=== PATIENT | female | born 1970 | race Caucasian/White ===

== ENCOUNTER 2023-03-26 08:13 | Outpatient (CLI) | payer MEDICARE, SELFPAY ==
--- NOTE | ~2023-03-26 | CT_ITS ---
EXAMINATION: CT sinus wo con DATE: 03/26/2023 08:26 INDICATION: Chronic sinusitis. TECHNIQUE: Computed tomography (CT) of the paranasal sinuses was performed without intravenous contra st. Iterative reconstruction technique was employed. The dose-length product was 264.97 mGy-cm. COMPARISON: None FINDINGS: The frontal, ethmoid, sphenoid, and maxillary sinuses are clear. There is mild rightward de viation of the nasal septum. The ostiomeatal units are patent. IMPRESSION: 1. Mild rightward deviation of the nasal septum. Reviewed, dictated and finalized at location E.
== END 2023-03-26 08:14 ==
LOC: MICIMG 08:15
PROVIDERS: PCP Family Medicine; Visit Provider Otolaryngology
DX: J32.9 Chronic sinusitis, unspecified (principal); J34.2 Deviated nasal septum
CPT/HCPCS: 70486

== ENCOUNTER 2025-02-27 09:18 | Outpatient (CLI) | payer MEDICARE, SELFPAY ==
--- NOTE | ~2025-02-27 | CT_ITS ---
EXAMINATION: CT cervical spine wo con DATE: 02/27/2025 09:33 INDICATION: Cervical disc displacement. Bilateral arm pain and tingling TECHNIQUE: Computed tomography (CT) of the cervical spine was performed without intravenous contrast. The dose-length product was 259.98 mGy-cm. COMPARISON: None FINDINGS: Straightening of the normal cervical lordosis. 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 Vertebral body heights are normal. No fracture. Moderate to severe disc height loss at C6-C7, mod erate disc height loss at C3-C4 and C5-C6 and mild disc height loss at C4-C5. Status post left thyroi dectomy with surgical clips at the left thyroid fossa. There are few coarse calcifications without ev ident associated nodules in the remaining right thyroid lobe. Visualized portions of the apices of roger ngs are clear. The following disc levels are specifically discussed: C2-C3: The disc does not extend beyond the endplate margin. There is mild bilateral uncovertebral randolph nt osteoarthritis. There is mild right facet joint osteoarthritis. The left facet joint is fused with moderate hypertrophic changes. There is minimal left neural foraminal stenosis. There is no central canal stenosis. C3-C4: Posterior disc osteophyte complex. There is severe bilateral uncovertebral joint osteoarthriti s. There is moderate right and facet joint osteoarthritis. The left facet joint is fused with promine nt hypertrophic changes. There is moderate right and moderate to severe left neural foraminal stenosi s. There is mild central canal stenosis. C4-C5: The disc does not appear to extend beyond the endplate margin. There is mild right and minimal left uncovertebral joint osteoarthritis. There is moderate right and mild to moderate left facet randolph nt osteoarthritis. There is mild right and minimal left neural foraminal stenosis. There is no centra l canal stenosis. C5-C6: Posterior disc osteophyte complex. There is moderate left and severe right uncovertebral joint osteoarthritis. There is mild left and moderate to severe right facet joint osteoarthritis. There is moderate bilateral neural foraminal stenosis. There is mild central canal stenosis. C6-C7: Posterior disc osteophyte complex. There is severe bilateral uncovertebral joint osteoarthriti s. There is mild bilateral facet joint osteoarthritis. There is mild right and moderate left neural f oraminal stenosis. There is mild central canal stenosis. C7-T1: The disc does not appear to extend beyond the endplate margin. There is minimal bilateral unco vertebral joint osteoarthritis. There is moderate right and severe left facet joint osteoarthritis. T here is minimal left and mild to moderate right neural foraminal stenosis. There is no central canal stenosis. IMPRESSION: 1. Moderate to severe cervical spondylosis. Reviewed, dictated and finalized at location A.
== END 2025-02-27 09:19 | disposition home or self-care (01) ==
LOC: MICIMG 09:19
DX: M50.20 Other cervical disc displacement, unspecified cervical region (principal); M48.02 Spinal stenosis, cervical region; M47.892 Other spondylosis, cervical region
CPT/HCPCS: 72125